=== PATIENT | male | born 1950 | race American Indian/Alaskan Native ===

== ENCOUNTER 2019-06-29 17:34 | Emergency (ER) | payer OTHER, MEDICARE ==
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
[2019-06-29] MEDS ORDERED: cloNIDine 0.1 MG TAB ONE (20:26)
[2019-06-29] MEDS ORDERED: cloNIDine 0.1 MG TAB PO ONE (20:29)
[2019-06-29 22:11] VITALS: BP 166/88
== END 2019-06-29 22:16 | disposition home or self-care (01) ==
LOC: ED 17:34
DX: M25.561 Pain in right knee (principal); M25.511 Pain in right shoulder; I10 Essential (primary) hypertension; V49.49XA Driver injured in collision with other motor vehicles in traffic accident, initial encounter; Y93.89 Activity, other specified; Y92.89 Other specified places as the place of occurrence of the external cause; Y99.8 Other external cause status
CPT/HCPCS: 99282